=== PATIENT | male | born 1955 | race African-American/Black ===

== ENCOUNTER 2018-08-26 13:44 | Outpatient (CLI) | payer MEDICAID ==
[~2018-08-26] VITALS: Ht 180.3 cm; Wt 112.0 kg
[2018-08-26 14:15] VITALS: BP 120/74
[2018-08-26] MEDS ORDERED: AMLODIPINE BESY10 MG ORAL (14:20)
[2018-08-26] MEDS ORDERED: ENALAPRIL MALEA20 MG ORAL (14:20)
[2018-08-26] MEDS ORDERED: LIPITOR40 MG ORAL (14:20)
[2018-08-26] MEDS ORDERED: ATENOLOL50 MG ORAL (14:20)
[2018-08-26] MEDS ORDERED: IRON325 M1 PO (14:20)
--- NOTE | 2018-08-26 20:29 | GI Initial Consult Note ---
History of Present Illness General Date patient seen: Aug 26, 2018 Time patient seen: 15:00 Referring physician: HMO Reason for Consultation: EGD FOLLOW UP Present Illness HPI 63 year old male patient, s/p EGD at [facility] found with gastric ulcer s/p hemoclip presents today for follow up appointment. Denies any GI symptoms at this time; denies abdominal pain, no N/V/D or constipation. The patient has been taking a PPI since his procedure. Denies any unintentional weight loss or changes in dietary habits. No signs of abuse or neglect. Patient is not fall risk. States he is going to have a colonoscopy done this month by Dr. White. Home Meds Reported Medications Ferrous Sulfate (IRON) 325 Mg Tablet, 325 MG PO BID, TAB 08/26/18 Enalapril Maleate* (ENALAPRIL MALEATE*) 20 Mg Tablet, 20 MG ORAL EVERY 12 HOURS , TAB 08/26/18 Atorvastatin Calcium* (LIPITOR*) 40 Mg Tablet, 40 MG ORAL BEDTIME, #30 TAB 0 Refills 08/26/18 Atenolol* (TENORMIN*) 50 Mg Tablet, 50 MG ORAL DAILY, TAB 08/26/18 Amlodipine Besylate* (AMLODIPINE BESYLATE*) 10 Mg Tablet, 10 MG ORAL DAILY, TAB 08/26/18 Med list reviewed/reconciled: Yes Allergies: Coded Allergies: No Known Allergies (Unverified , 08/26/18) Patient History History Provided By: Patient, Medical Record PMH Narrative HTN cholesterol anemia Past Surgical History: s/p EGD with and hemoclip. Pertinent Family History: none Social History: Reports: smoking, alcohol use Review of Systems All Other Systems: negative except mentioned in HPI Physical Exam Vital Signs Date Time Temp Pulse Resp B/P (MAP) Pulse Ox O2 Delivery O2 Flow Rate FiO2 08/26/18 14:15 98.1 72 16 120/74 98 98.1 Sp02 EP Interpretation: reviewed, normal General Appearance: well appearing, no apparent distress, alert Head: normocephalic EENT: PERRL/EOMI, normal ENT inspection Neck: supple Respiratory: normal breath sounds, no respiratory distress Cardiovascular: normal rate Gastrointestinal: normal inspection, non tender, soft, normal bowel sounds, non -distended Rectal: deferred Genitourinary: deferred Musculoskeletal: normal inspection, back normal Neurologic: normal inspection, alert, oriented x3, responsive Psychiatric: normal inspection, judgement/insight normal, memory normal Skin: normal inspection, normal color, no rash, warm/dry, palpation normal, well hydrated Lymphatic: normal inspection, no adenopathy GI: Plan Problems: (1) Gastric ulcer with hemorrhage (2) HTN (hypertension) (3) HLD (hyperlipidemia) Plan s/p EGD summary of findings reviewed with patient. cont PPI patient scheduled for colonoscopy this month. RTC prn Seen with Dr. Carter. Thank you for this patient referral. The patient was seen and examined at bedside and all new and available data was reviewed in the patients chart. I agree with the above findings, impression and plan. (Patient seen earlier today. Signature stamp does not reflect patient encounter time.). - MD Yesenia CalderonHu Hu [facility] Aug 26, 2018 20:29
== END 2018-08-26 14:14 | disposition home or self-care (01) ==
LOC: PAN 13:44
DX: K25.4 Chronic or unspecified gastric ulcer with hemorrhage (principal); I10 Essential (primary) hypertension; E78.5 Hyperlipidemia, unspecified; D64.9 Anemia, unspecified
CPT/HCPCS: 99213